=== PATIENT | male | born 1965 | race Caucasian/White ===

== ENCOUNTER → 2016-11-27 | Outpatient (REF) | payer MEDICARE, MEDICAID ==
[~2016-11-27] MED LIST: ALTA1.25 PO; AMLO2.5T PO; ASPI81TA4 PO; CARV25TA PO; CLAR10CA3 PO; FLEX10TA2 PO; LIPI20TA PO; OMEP40CA2 PO; OXYC5TAB2 PO; VALT1TAB PO
[2016-11-27 12:13] LABS: ALBUMIN 3.6 GM/DL (3.2-5.2); ALBUMIN/GLOBULIN RATIO 1.29 (1.00-1.93); ALKALINE PHOSPHATASE 43 U/L (45-117); ALT/SGPT 30 U/L (12-78); ANION GAP 8 MEQ/L (8-16); AST/SGOT 13 U/L (15-37); BILIRUBIN,TOTAL 0.3 MG/DL (0.2-1.0); BLOOD UREA NITROGEN 21 MG/DL (7-18); CALCIUM LEVEL 8.9 MG/DL (8.5-10.1); CARBON DIOXIDE LEVEL 29 MEQ/L (21-32); CHLORIDE LEVEL 103 MEQ/L (98-107); CHOLESTEROL LEVEL 200 MG/DL (<200); GLOMERULAR FILTRATION RATE > 60.0 (>56); GLUCOSE, FASTING 90 MG/DL (70-105); POTASSIUM SERUM 4.2 MEQ/L (3.5-5.1); SODIUM LEVEL 140 MEQ/L (136-145); TOTAL PROTEIN 6.4 GM/DL (6.4-8.2); TRIGLYCERIDES LEVEL 302 MG/DL (<150)
== END ==
LOC: M SFHCCLAY 08:17
PROVIDERS: ATTEND Family Medicine
DX: E78.2 Mixed hyperlipidemia (principal)

== ENCOUNTER → 2017-02-06 | Outpatient (REF) | payer MEDICARE, MEDICAID ==
[2017-02-06 17:23] LABS: BLOOD UREA NITROGEN 32 MG/DL (7-18); CREATININE FOR GFR 1.13 MG/DL (0.70-1.30); GLOMERULAR FILTRATION RATE > 60.0 (>56)
== END ==
LOC: M LABDRAWC 16:43
PROVIDERS: ATTEND Neurological Surgery
DX: I10 Essential (primary) hypertension (principal); G95.9 Disease of spinal cord, unspecified

== ENCOUNTER → 2017-06-03 | Outpatient (REF) | payer MEDICARE, MEDICAID ==
[2017-06-03 12:39] LABS: ALBUMIN 4.1 GM/DL (3.2-5.2); ALBUMIN/GLOBULIN RATIO 1.58 (1.00-1.93); ALKALINE PHOSPHATASE 44 U/L (45-117); ALT/SGPT 28 U/L (12-78); ANION GAP 9 MEQ/L (8-16); AST/SGOT 13 U/L (7-37); BILIRUBIN,TOTAL 0.4 MG/DL (0.2-1.0); BLOOD UREA NITROGEN 23 MG/DL (7-18); CARBON DIOXIDE LEVEL 25 MEQ/L (21-32); CHLORIDE LEVEL 104 MEQ/L (98-107); CHOLESTEROL LEVEL 200 MG/DL (<200); CREATININE FOR GFR 0.87 MG/DL (0.70-1.30); GLOMERULAR FILTRATION RATE > 60.0 (>56); GLUCOSE, FASTING 95 MG/DL (70-105); POTASSIUM SERUM 4.3 MEQ/L (3.5-5.1); SODIUM LEVEL 138 MEQ/L (136-145); TOTAL PROTEIN 6.7 GM/DL (6.4-8.2); TRIGLYCERIDES LEVEL 248 MG/DL (<150)
== END ==
LOC: M SFHCCLAY 09:33
PROVIDERS: ATTEND Family Medicine
DX: E78.2 Mixed hyperlipidemia (principal); Z12.5 Encounter for screening for malignant neoplasm of prostate
CPT/HCPCS: 80053; 80061; G0103

== ENCOUNTER → 2017-11-24 | Outpatient (REF) | payer MEDICARE, MEDICAID ==
[2017-11-24 18:09] LABS: ALBUMIN 4.4 GM/DL (3.2-5.2); ALBUMIN/GLOBULIN RATIO 1.33 (1.00-1.93); ALKALINE PHOSPHATASE 54 U/L (45-117); ALT/SGPT 28 U/L (12-78); ANION GAP 7 MEQ/L (8-16); AST/SGOT 15 U/L (7-37); BILIRUBIN,TOTAL 0.3 MG/DL (0.2-1.0); BLOOD UREA NITROGEN 26 MG/DL (7-18); CARBON DIOXIDE LEVEL 24 MEQ/L (21-32); CHLORIDE LEVEL 111 MEQ/L (98-107); CHOLESTEROL LEVEL 234 MG/DL (<200); CHOLESTEROL RISK RATIO 6.882 (<5); CREATININE FOR GFR 0.95 MG/DL (0.70-1.30); GLOMERULAR FILTRATION RATE > 60.0 (>56); GLUCOSE, FASTING 90 MG/DL (70-100); HDL CHOLESTEROL 34 MG/DL (>40); LDL CHOLESTEROL 126.4 MG/DL (<100); NON-HDL-C 200 MG/DL; SODIUM LEVEL 142 MEQ/L (136-145); TOTAL PROTEIN 7.7 GM/DL (6.4-8.2); TRIGLYCERIDES LEVEL 368 MG/DL (<150)
== END ==
LOC: M SFHCCLAY 10:17
DX: E78.2 Mixed hyperlipidemia (principal)
CPT/HCPCS: 80053

== ENCOUNTER → 2019-02-15 | Outpatient (CLI) | payer MEDICARE, MEDICAID ==
--- NOTE | 2019-02-16 04:49 | REP ---
Clinical: Back pain. Technique: AP, lateral, coned-down views of the lumbosacral spine. Findings: Alignment and lordosis maintained. No acute fracture / compression injury or subluxation. Mild multilevel degenerative changes include subtle marginal spurring and hypertrophic facet changes. Disc spaces appear maintained by radiographic evaluation. Atherosclerotic disease to the aorta noted and aortic ectasia versus aneurysm cannot be excluded. Impression: Minimal degenerative changes by radiographic evaluation. Cannot exclude abdominal aortic aneurysm for which ultrasound may be warranted. Electronically Signed by Margarito Mensah MD 02/16/2019 04:40 A
--- NOTE | 2019-02-16 05:18 | REP ---
Clinical: Neck pain. Technique: AP, lateral, flexion/extension, bilateral oblique, swimmers and open mouth views of the cervical spine. Comparison: 04/17/2016. Findings: The patient appears to be status post posterior fixation at C3 - C6 along with anterior fixation at C3-4 and C6-7. Advanced arthritic changes and alignment are maintained and stable compared with 2016. Impression: Relatively stable examination as compared to 2016. Electronically Signed by Margarito Mensah MD 02/16/2019 05:10 A
== END ==
LOC: M CLY 10:10
PROVIDERS: ATTEND Family Medicine
DX: M50.30 Other cervical disc degeneration, unspecified cervical region (principal); M51.37 Other intervertebral disc degeneration, lumbosacral region

== ENCOUNTER → 2019-02-22 | Outpatient (CLI) | payer MEDICARE, MEDICAID ==
--- NOTE | 2019-02-22 10:07 | REP ---
REASON: Possible abdominal aortic aneurysm. Multiple ultrasonographic images of the abdominal aorta were obtained from the level of the celiac axis to the aortoiliac bifurcation in the longitudinal and transverse scan planes. The maximal AP dimension of the abdominal aorta as measured in the longitudinal scan plane is 3.3 cm at the level of the renal arteries. There is no evidence of common iliac arterial ectasia. The aortic abebe are irregular consistent with atherosclerotic change. IMPRESSION: At the level of the renal arteries there is an aneurysm as described above. Electronically Signed by Eric Jeffries DO 02/22/2019 12:26 P
== END ==
LOC: M RAD 06:36
PROVIDERS: ATTEND Family Medicine
DX: I71.4 Abdominal aortic aneurysm, without rupture (principal)

== ENCOUNTER → 2019-04-21 | Outpatient (CLI) | payer MEDICARE, MEDICAID ==
--- NOTE | 2019-04-23 10:54 | SLEEPCENT ---
DATE OF PROCEDURE: 04/21/2019 ORDERED BY: JOSE Méndez Nocturnal polysomnography was performed for evaluation of sleep physiology in this patient with history of excessive somnolence and nonrestorative sleep who has comorbidities of hypertension, acid reflux disease, obstructive lung disease and who had previously identified to have obstructive sleep apnea syndrome. 6 hours and 44 minutes of data were reviewed. There were 364 minutes of sleep identified. Sleep latency was normal at 10 minutes. Rapid eye movement (REM) latency was normal at 97 minutes. Sleep architecture was fair with two REM cycles. Overall sleep efficiency 92.3%. The electrocardiogram showed a sinus rhythm with an average heart rate of 58 beats per minute. Electroencephalogram (EEG) showed normal waveforms for awake and sleep. There were 150 respiratory events identified of 10 seconds in duration or greater for an apnea-hypopnea index of 24.7. The events were primarily obstructive, however, 37 central and mixed apneas were also seen. The events were not exclusive to sleep stage nor body posture. Arousals from respiratory events occurred 23.1 times per hour and oxygen desaturations were seen on occasion into the 80s. Remaining measures of sleep physiology were normal. IMPRESSION: Obstructive sleep apnea syndrome (G47.33). Apnea-hypopnea index 24.7. RECOMMENDATIONS: The patient should be encouraged to return to sleep disorder center for pressure therapy. In the interim, alcohol and sedative avoidance should be practiced and caution exercised during operation of motor vehicles.
== END ==
LOC: M SLEEP 19:29
PROVIDERS: ATTEND Physician Assistant
DX: G47.33 Obstructive sleep apnea (adult) (pediatric) (principal); R06.83 Snoring

== ENCOUNTER → 2019-05-21 | Outpatient (CLI) | payer MEDICARE, MEDICAID ==
--- NOTE | 2019-05-25 14:20 | SLEEPCENT ---
DATE OF STUDY: 05/21/2019 ORDERED BY: Margarito Moody Nocturnal polysomnography was performed for the titration of pressure therapy in this patient with obstructive sleep apnea syndrome and apnea-hypopnea index of 24.7. For testing, the patient was fit with a ResMed AirFit F30 full face mask of medium size and 4 cm of water pressure were applied to the circuit and the lights were extinguished. 7 hours and 43 minutes of data were reviewed. There were 319 minutes of sleep identified. Sleep latency was mildly prolonged at 16 minutes. Rapid eye movement (REM) latency was more so prolonged at 231 minutes. Sleep architecture improved with optimal pressure therapy. There were 2 REM cycles noted. Overall sleep efficiency was 70%. The patient's electrocardiogram showed a sinus rhythm with an average heart rate of 56 beats per minute. There were frequent ectopic beats noted. Electroencephalogram (EEG) showed no clear focal events. Significant N3 sleep was noted. Respiratory events were fully palliated with C-PAP at a pressure of +12 and remaining measures of sleep physiology were normal. IMPRESSION: Obstructive sleep apnea syndrome (G47.33). RECOMMENDATION: Nightly use of pressure therapy at 12 cm of water.
== END ==
LOC: M SLEEP 19:19
PROVIDERS: ATTEND Physician Assistant
DX: G47.33 Obstructive sleep apnea (adult) (pediatric) (principal)

== ENCOUNTER → 2019-09-14 | Outpatient (REF) | payer MEDICARE, MEDICAID ==
[2019-09-14 14:30] LABS: APPEARANCE, URINE CLEAR (CLEAR); BACTERIA, URINE AUTO NEGATIVE (NEGATIVE); BILIRUBIN, URINE AUTO NEGATIVE (NEGATIVE); BLOOD, URINE BLOOD NEGATIVE (NEGATIVE); COLOR, URINE YELLOW (YELLOW); GLUCOSE, URINE (UA) AUTO NEGATIVE (NEGATIVE); KETONE, URINE AUTO NEGATIVE (NEGATIVE); LEUKOCYTE ESTERASE, URINE AUTO NEGATIVE (NEGATIVE); MUCUS, URINE SMALL (NEGATIVE); NITRITE, URINE AUTO NEGATIVE (NEGATIVE); PROTEIN, URINE AUTO NEGATIVE (NEGATIVE); RBC, URINE AUTO 0 /HPF (0-3); SPECIFIC GRAVITY URINE AUTO 1.008 (1.002-1.035); SQUAMOUS EPITHELIAL CELL UR AU 0 /HPF (0-6); UROBILINOGEN, URINE AUTO 0.2 mg/dL (0.0-2.0); WBC, URINE AUTO 0 /HPF (0-3)
[2019-09-14 14:49] LABS: ALBUMIN 4.2 GM/DL (3.2-5.2); ALT/SGPT 31 U/L (12-78); BILIRUBIN,TOTAL 0.3 MG/DL (0.2-1.0); BLOOD UREA NITROGEN 24 MG/DL (7-18); CALCIUM LEVEL 9.1 MG/DL (8.5-10.1); CARBON DIOXIDE LEVEL 26 MEQ/L (21-32); CHLORIDE LEVEL 110 MEQ/L (98-107); CHOLESTEROL LEVEL 252 MG/DL (<200); CREATININE FOR GFR 0.97 MG/DL (0.70-1.30); GLOMERULAR FILTRATION RATE > 60.0 (>56); GLUCOSE, FASTING 107 MG/DL (70-100); HDL CHOLESTEROL 35 MG/DL (>40); NON-HDL-C 217 MG/DL; SODIUM LEVEL 142 MEQ/L (136-145); TOTAL PROTEIN 6.9 GM/DL (6.4-8.2); TRIGLYCERIDES LEVEL 414 MG/DL (<150)
[2019-09-14 18:14] LABS: HEMOGLOBIN A1c 5.4 %
[2019-09-15 10:35] LABS: HEPATITIS C VIRUS ABY INDEX < 0.0 INDEX (<0.8)
== END ==
LOC: M LABDRAW1 13:06
PROVIDERS: ATTEND Internal Medicine Infectious Disease
DX: B20 Human immunodeficiency virus [HIV] disease (principal); E78.2 Mixed hyperlipidemia; Z79.899 Other long term (current) drug therapy

== ENCOUNTER → 2019-11-12 | Outpatient (CLI) | payer MEDICARE, MEDICAID ==
[~2019-11-12] MED LIST changes: +ISOVUE-370 76% 100ML VIAL As Ordered ONE
--- NOTE | 2019-11-12 13:24 | REP ---
CAROTID ULTRASOUND: Real-time ultrasound evaluation and duplex Doppler interrogation of the extracranial carotid vasculature is performed. There is mild plaquing and narrowing in both carotid bulbs extending into the internal and external carotid arteries. Luminal narrowing is less than 50%. There is no evidence of hemodynamically significant stenosis of either internal carotid artery. Normal flow velocities are seen. The right vertebral artery demonstrates normal direction of flow. The left vertebral artery is not visualized. RIGHT LEFT Peak systolic velocity ICA 72.8 cm/s 110.4 cm/s End diastolic velocity ICA 19.4 cm/s 38.3 cm/s Peak systolic velocity CCA 103.8 cm/s 89.8 cm/s Peak systolic velocity ECA 87.4 cm/s 89.9 cm/s ICA/CCA ratio 0.7 1.2 IMPRESSION: Bilateral luminal narrowing of the internal carotid arteries less than 50%. No evidence of hemodynamically significant stenosis. Electronically Signed by Teodoro Browne MD 11/12/2019 01:16 P
--- NOTE | 2019-11-12 14:33 | REP ---
CT CHEST WITH IV CONTRAST: HISTORY: Abdominal aortic aneurysm. Occlusion and stenosis. CT CONTRAST DOSE: 75 mL of intravenous Isovue 370. No comparison chest CT study. CT FINDINGS: Pulmonary digital outreach specialist radiograph is unremarkable. A left arm vein was injected with contrast. There are more than the usual number of shoulder, upper arm, anterior chest wall and in the mediastinum. Brachial cephalic vein in the proximal subclavian vein on the left are occluded with well established collaterals consistent with a chronic venous occlusion. The right internal jugular vein is larger than the left and patent. The right superior vena cava and the main superior vena cava are widely patent. The thoracic aorta enhances homogeneously. There is no evidence of aneurysm or dissection. There is some vascular calcification including left coronary artery distribution vascular calcification. There is good opacification of the pulmonary arterial tree. No filling defect is seen to suggest pulmonary embolism. No hilar or mediastinal mass or adenopathy is observed. Great vessel origins are unremarkable. No adrenal lesion is seen. There is mild linear fibrosis in the left lower lobe. There is granulomatous calcification in the left upper lobe. There is a small granulomatous calcification in the left lower lobe. There is a larger centrally calcified benign-appearing granuloma in the right upper lobe measuring 1.5 cm in greatest diameter. This is a smaller adjacent nodule which is also calcified. Bony window settings show no bony destructive lesion. The patient is status post cervical spine in fusion hardware placement. In the left upper lobe there are three small subcentimeter ill-defined nodular densities in a peribronchovascular distribution near the apex. These are nearly adjacent to one another and this could reflect inflammatory change. IMPRESSION: 1. 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 2. Scattered granulomatous calcifications. 3. Noncalcified ill-defined peribronchovascular nodules in the left upper lobe 3-4 mm in greatest diameter. Followup is recommended. Repeat CT study 6 months time. Incomplete
--- NOTE | 2019-11-12 15:16 | REP ---
CT ABDOMEN AND PELVIS WITHOUT CONTRAST: CT abdomen and pelvis performed without oral or IV contrast. Sagittal and coronal reconstruction images are performed. Fibrotic scarring is seen in the left lung base as well as a calcified granuloma. The liver demonstrates a couple of tiny subcentimeter hypodensities probably representing cysts. Spleen is normal size. Left adrenal adenoma is present approximately 2 cm in maximum diameter. Right adrenal glands is normal. Pancreas is grossly unremarkable. Kidneys are grossly unremarkable with no hydronephrosis. There is moderate atherosclerotic calcification of the abdominal aorta. There is fusiform dilatation of the mid to distal abdominal aorta extending from the level of the renal arteries to just above the bifurcation. This extends for a length of about 8 cm. At the level of the renal arteries, maximum AP diameter is 3.6 cm. Distally, the abdominal aorta tapers, at the distal end of this fusiform dilatation with maximum AP diameter is 3.2 cm. Diameter at the aortic bifurcation is within normal range. No adenopathy is seen. There is no free air or free fluid. There is no bowel wall thickening. No pelvic mass is seen. Urinary bladder is grossly unremarkable. There are degenerative changes of the spine. There are small bilateral inguinal hernias containing fat. IMPRESSION: Fusiform mild aneurysmal dilatation of the mid to distal abdominal aorta extending from the level of the renal arteries to just above the bifurcation, length is approximately 8 cm. Maximum AP dimension is at the proximal aspect at the level of the renal artery is 3.6 cm. There are small bilateral inguinal hernias containing fat. Electronically Signed by Teodoro Browne MD 11/12/2019 03:44 P
== END ==
LOC: M RAD 12:39
PROVIDERS: ATTEND Physician Assistant
DX: I71.4 Abdominal aortic aneurysm, without rupture (principal); I65.23 Occlusion and stenosis of bilateral carotid arteries
CPT/HCPCS: 71260; 74176; 93880; Q9967

== ENCOUNTER → 2019-12-31 | Outpatient (CLI) | payer MEDICARE, MEDICAID ==
[~2019-12-31] MED LIST changes: -ISOVUE-370 76% 100ML VIAL As Ordered ONE
--- NOTE | 2019-12-31 10:18 | REP ---
CERVICAL SPINE SERIES: Three views. HISTORY: Radiculopathy. Comparison study February 15, 2019. FINDINGS: There is reversal of the normal cervical lordosis. The patient is status post ventral discectomy and fusion plating is C3-4 and also at C6-7. There is dorsal fusion hardware across the C3 through C6 levels as before. Alignment is unchanged. Discogenic spurring is seen anteriorly at C5-6. This is unchanged. There is a dextroconvex curvature on the AP view again noted. No bony destructive lesion is seen. The patient is edentulous. IMPRESSION: Degenerative and extensive postsurgical changes radiographically stable from February 15, 2019. Electronically Signed by Amos Bar MD 12/31/2019 12:47 P
== END ==
LOC: M CLY 08:36
PROVIDERS: ATTEND Neurological Surgery
DX: M54.2 Cervicalgia (principal); Z98.1 Arthrodesis status; M46.02 Spinal enthesopathy, cervical region

== ENCOUNTER → 2020-02-29 | Outpatient (REF) | payer MEDICARE, MEDICAID ==
[2020-04-26 14:02] LABS: BLOOD UREA NITROGEN 25 MG/DL (7-18); CREATININE FOR GFR 1.01 MG/DL (0.70-1.30); GLOMERULAR FILTRATION RATE > 60.0 (>56)
== END ==
LOC: M LABDRAWC 12:01
PROVIDERS: ATTEND Physician Assistant
DX: R94.2 Abnormal results of pulmonary function studies (principal)

== ENCOUNTER → 2020-05-24 | Outpatient (REF) | payer MEDICARE, MEDICAID ==
[2020-05-24 16:29] LABS: BLOOD UREA NITROGEN 18 MG/DL (7-18); CREATININE FOR GFR 0.95 MG/DL (0.70-1.30); GLOMERULAR FILTRATION RATE > 60.0 (>56)
== END ==
LOC: M LABDRAWC 15:50
PROVIDERS: ATTEND Physician Assistant
DX: R91.8 Other nonspecific abnormal finding of lung field (principal); R94.2 Abnormal results of pulmonary function studies

== ENCOUNTER → 2020-05-26 | Outpatient (CLI) | payer MEDICARE, MEDICAID ==
[~2020-05-26] MED LIST changes: +ISOVUE-370 76% 100ML VIAL As Ordered ONE
--- NOTE | 2020-05-26 13:57 | REP ---
INDICATION: ABNORMAL RESULTS OF PFT, WITH PE PROTOCOL. COMPARISON: CT 11/12/2019 TECHNIQUE: CT angiogram chest performed following the intravenous administration of 75 cc of Isovue 370. Sagittal and coronal reconstruction images are performed. A right upper extremity injection was performed as the previous CT showed occlusion of the left brachiocephalic vein and numerous collaterals which would limit a CT angiogram. FINDINGS: Lungs: Some stable apical pleuroparenchymal fibrosis bilaterally. Few small left upper lobe nodules are seen which appear stable and have a zone of the ring-like fibrotic change around them appearance grossly unchanged. Some stranding towards the hilum. Hyperinflation is again seen. No granulomatous calcification anterolaterally in the right upper lobe along the anterior axillary line with adjacent daughter nodule and stable, benign. There is a 4 mm nodule superior segment right lower lobe abutting the pleura and stable. No pleural thickening, pleural effusion or acute infiltrate. Pulmonary arteries: No evidence of pulmonary embolism. Mi: 8 mm nodes at the right hilum. No cm size nodes or mass. Axilla: No adenopathy. Pleura: No effusion, pleural plaque or calcified plaque. No pleural based mass. Heart: Not enlarged. Thoracic aorta: No aneurysm or dissection in the thoracic aorta. However, there is aneurysmal dilatation up to 3.8 cm in the infrarenal abdominal aorta on the last image of this field of view. This is a known finding based on CT 11/12/2019. There are atherosclerotic calcifications. Upper abdominal structures: Unremarkable. Visualized osseous structures: Unremarkable. IMPRESSION: No CT evidence of pulmonary embolism. Some mild chronic fibrotic changes and a few stable nodules some calcified granulomas. Left apex scarring. No infiltrate or effusion and no mediastinal, hilar or axillary adenopathy. Upper abdominal aortic aneurysm noted as on previous CT abdomen and November 2019 but this is only seen in part today. <Electronically signed by Karthikeyan Vazquez > 05/26/20 [id number]
== END ==
LOC: M RAD 11:07
PROVIDERS: ATTEND Physician Assistant
DX: R94.2 Abnormal results of pulmonary function studies (principal); J84.10 Pulmonary fibrosis, unspecified; R91.8 Other nonspecific abnormal finding of lung field; I71.4 Abdominal aortic aneurysm, without rupture
CPT/HCPCS: 71275; Q9967

== ENCOUNTER → 2021-01-03 | Outpatient (CLI) | payer MEDICARE, MEDICAID ==
[~2021-01-03] MED LIST changes: -ISOVUE-370 76% 100ML VIAL As Ordered ONE
--- NOTE | 2021-01-03 08:34 | REP ---
INDICATION: AAA WITHOUT RUPTURE. COMPARISON: 02/22/2019. TECHNIQUE: Real-time sonographic evaluation of the abdominal aorta performed. FINDINGS: There is mild diffuse dilatation of the abdominal aorta from the level of the renal arteries to the aortic bifurcation. Maximum AP diameter of abdominal aorta: Proximal (at diaphragm):3.0 cm. At renal artery level: 3.8 cm Mid abdominal aorta:3.4 cm. Distal abdominal aorta (prebifurcation): 3.7 cm. Maximum AP diameter common iliac arteries: Right: 9 mm. Left: 9mm. IMPRESSION: Mild diffuse dilatation of the abdominal aorta from the level of the renal arteries to the aortic bifurcation extending for a length of approximately 10 cm. Maximum AP diameter is at the level of the renal arteries, 3.8 cm. Previously the maximum diameter in the AP dimension was 3.3 cm. <Electronically signed by Teodoro Browne > 01/03/21 [id number]
== END ==
LOC: M RAD 07:29
PROVIDERS: ATTEND Family Medicine
DX: I71.4 Abdominal aortic aneurysm, without rupture (principal)

== ENCOUNTER → 2021-01-30 | Outpatient (CLI) | payer MEDICARE, MEDICAID ==
--- NOTE | 2021-01-31 08:51 | DEXAMM ---
INDICATION: M50.30 DEGENERATIVE DISC DX. COMPARISON: None. TECHNIQUE: Bone density was measured using dual-energy x-ray absorptiometry (DEXA). FINDINGS: AP SPINE L1-L4 BMD 1.130 g/cm2 Young Adult T-Score -0.5 Age Matched Z-Score -0.6. LT FEMUR, TOTAL BMD 0.766 g/cm2 Young Adult T-Score -1.9 Age Matched Z-Score -1.9. LT NECK BMD 0.744 g/cm2 Young Adult T-Score -2.1 Age Matched Z-Score -1.7. RT FEMUR, TOTAL BMD 0.785 g/cm2 Young Adult T-Score -1.8 Age Matched Z-Score -1.8. RT NECK BMD 0.735 g/cm2 Young Adult T-Score -2.2 Age Matched Z-Score -1.8. IMPRESSION: There is normal bone density of the spine. There is low bone density of the left hip. There is low bone density of the right hip. FOLLOW-UP: Recommendation for the next bone density exam: 2 years. <Electronically signed by Teodoro Browne > 01/31/21 [id number]
== END ==
LOC: M WHC 10:09
DX: M85.88 Other specified disorders of bone density and structure, other site (principal); M50.30 Other cervical disc degeneration, unspecified cervical region

== ENCOUNTER → 2021-01-30 | Outpatient (CLI) | payer MEDICARE, MEDICAID ==
--- NOTE | 2021-01-30 11:47 | REP ---
INDICATION: DDD. COMPARISON: Comparison study December 31, 2019.. TECHNIQUE: Eight views. FINDINGS: Lateral views of the cervical spine done in flexion, extension, and neutral position show relative flexion extension immobility but no instability or subluxation is seen. There is reversal of the normal cervical lordosis as previously noted. Ventral discectomy and fusion plates are seen across the C3-4 and C6-7 disc spaces. Bilateral dorsal screw isak fixation devices are also noted from C3 through C6. Patient is edentulous. There is prominent discogenic spurring anteriorly at C5-6. These findings are unchanged. Swimmer's lateral view shows no additional abnormality. There is a mild dextroconvex curve again noted on the AP radiograph. Oblique images show no bony neural foraminal encroachment. Open mouth odontoid view is unremarkable. IMPRESSION: Stable degenerative disc and status post fusion changes. Discogenic spurring anteriorly at C5-6. Reversal of the normal cervical lordosis. Limited flexion extension range of motion. <Electronically signed by Carlos Bar > 01/30/21 [id number]
== END ==
LOC: M PLAIMG 09:28
DX: M50.30 Other cervical disc degeneration, unspecified cervical region (principal)

== ENCOUNTER → 2021-09-04 | Outpatient (CLI) | payer MEDICARE, MEDICAID | LOC: M RAD 10:26 | PROVIDERS: ATTEND Family Medicine | DX: R22.1 Localized swelling, mass and lump, neck (principal) ==

== ENCOUNTER → 2021-09-27 | Outpatient (CLI) | payer MEDICARE, MEDICAID | LOC: M CLY 09:05 | PROVIDERS: ATTEND Physician Assistant | DX: M54.2 Cervicalgia (principal) ==

== ENCOUNTER → 2021-10-09 | Outpatient (CLI) | payer MEDICARE, MEDICAID | LOC: M PAIN 09:00 | PROVIDERS: ATTEND Nurse Practitioner Family | DX: M79.10 Myalgia, unspecified site (principal); J44.9 Chronic obstructive pulmonary disease, unspecified; G47.30 Sleep apnea, unspecified; F17.210 Nicotine dependence, cigarettes, uncomplicated; Z86.59 Personal history of other mental and behavioral disorders; Z88.2 Allergy status to sulfonamides; Z88.8 Allergy status to other drugs, medicaments and biological substances; Z91.018 Allergy to other foods; Z79.82 Long term (current) use of aspirin; Z79.899 Other long term (current) drug therapy ==

== ENCOUNTER → 2021-12-14 | Outpatient (CLI) | payer MEDICARE, MEDICAID | LOC: M PLARAD 10:20 | PROVIDERS: ATTEND Family Medicine | DX: M50.21 Other cervical disc displacement, high cervical region (principal); R20.0 Anesthesia of skin; R15.9 Full incontinence of feces; M50.23 Other cervical disc displacement, cervicothoracic region; M48.02 Spinal stenosis, cervical region ==

== ENCOUNTER → 2022-01-11 | Outpatient (CLI) | payer MEDICARE, MEDICAID | LOC: M RAD 12:46 | PROVIDERS: ATTEND Family Medicine | DX: R91.8 Other nonspecific abnormal finding of lung field (principal); I70.0 Atherosclerosis of aorta; I25.10 Atherosclerotic heart disease of native coronary artery without angina pectoris ==

== ENCOUNTER → 2022-01-15 | Outpatient (CLI) | payer MEDICARE, MEDICAID | LOC: M RAD 06:34 | PROVIDERS: ATTEND Family Medicine | DX: I67.1 Cerebral aneurysm, nonruptured (principal) ==

== ENCOUNTER → 2022-01-24 | Outpatient (REF) | payer MEDICARE, MEDICAID ==
[2022-01-24 12:20] LABS: BLOOD UREA NITROGEN 21 MG/DL (7-18); CALCIUM LEVEL 9.5 MG/DL (8.5-10.1); CARBON DIOXIDE LEVEL 28 MEQ/L (21-32); CHLORIDE LEVEL 104 MEQ/L (98-107); CHOLESTEROL LEVEL 259 MG/DL (<200); CHOLESTEROL RISK RATIO 7.617 (<5); CREATININE FOR GFR 0.88 MG/DL (0.70-1.30); GLOMERULAR FILTRATION RATE > 60.0 (>56); GLUCOSE, FASTING 99 MG/DL (70-100); HDL CHOLESTEROL 34 MG/DL (>40); LDL CHOLESTEROL 156 MG/DL (<100); NON-HDL-C 225 MG/DL; POTASSIUM SERUM 4.5 MEQ/L (3.5-5.1); SODIUM LEVEL 138 MEQ/L (136-145); TRIGLYCERIDES LEVEL 345 MG/DL (<150)
[2022-01-24 12:32] LABS: HEMOGLOBIN A1c 5.9 %
== END ==
LOC: M SFHCCLAY 08:27
PROVIDERS: ATTEND Family Medicine
DX: E78.2 Mixed hyperlipidemia (principal); I11.9 Hypertensive heart disease without heart failure; Z13.1 Encounter for screening for diabetes mellitus

== ENCOUNTER 2022-02-04 12:24 | Emergency (ER) | payer MEDICARE, MEDICAID ==
[~2022-02-04] VITALS: Ht 172.7 cm; Wt 74.1 kg
[2022-02-04 14:08] LABS: BASO # 0.1 10^3/uL (0.0-0.2); BASO % 0.7 % (0.0-1.0); EOS # 0.1 10^3/uL (0.0-0.5); HEMATOCRIT 50.6 % (42.0-52.0); HEMOGLOBIN 17.3 g/dl (13.5-17.5); LYMPH # 3.7 10^3/uL (1.5-5.0); LYMPH % 31.1 % (24.0-44.0); MEAN CORPUSCULAR HEMOGLOBIN 34.1 pg (27.0-33.0); MEAN CORPUSCULAR HGB CONC 34.2 g/dl (32.0-36.5); MEAN CORPUSCULAR VOLUME 99.6 fl (80.0-96.0); MONO # 0.8 10^3/uL (0.0-0.8); MONO % 6.5 % (2.0-8.0); NEUTROPHILS # 7.3 10^3/uL (1.5-8.5); NEUTROPHILS % 60.4 % (36.0-66.0); PLATELET COUNT, AUTOMATED 266 10^3/uL (150-450); RED BLOOD COUNT 5.08 10^6/uL (4.30-6.10)
[2022-02-04] MEDS ORDERED: NS 1,000 ML IV ONE (14:55)
[2022-02-04] MEDS ORDERED: ISOVUE-370 76% 100ML VIAL As Ordered ONE (15:24)
[2022-02-04] MEDS ORDERED: MORPHINE 4 MG/ML 1ML VIAL/SYRINGE IV ONE (17:15)
[2022-02-04 18:01] LABS: ALBUMIN 4.4 GM/DL (3.2-5.2); ALT/SGPT 34 IU/L (0-32); BILIRUBIN,DIRECT < 0.1 MG/DL (0.0-0.2); BILIRUBIN,TOTAL 0.5 MG/DL (0.2-1.0); BLOOD UREA NITROGEN 36 MG/DL (7-18); CALCIUM LEVEL 9.8 MG/DL (8.5-10.1); CARBON DIOXIDE LEVEL 23 mmol/L (20-29); CHLORIDE LEVEL 110 MEQ/L (98-107); CREATININE FOR GFR 1.06 MG/DL (0.70-1.30); GLOMERULAR FILTRATION RATE > 60.0 (>56); GLUCOSE, FASTING 94 MG/DL (70-100); POTASSIUM SERUM 4.5 MEQ/L (3.5-5.1); SODIUM LEVEL 140 MEQ/L (136-145); TOTAL PROTEIN 8.1 GM/DL (6.4-8.2)
[2022-02-04 18:02] LABS: LIPASE 141 U/L (73-393)
[2022-02-04 19:05] LABS: INR 0.97; PARTIAL THROMBOPLASTIN TIME 26.2 SECONDS (25.9-37.0); PROTHROMBIN TIME 13.2 SECONDS (12.7-14.5)
[2022-02-04 19:52] VITALS: BP 144/83
== END 2022-02-04 19:55 | disposition home or self-care (01) ==
LOC: M ED 12:24
DX: R10.84 Generalized abdominal pain (principal); K76.89 Other specified diseases of liver; I70.0 Atherosclerosis of aorta; I70.1 Atherosclerosis of renal artery; D35.02 Benign neoplasm of left adrenal gland; I25.2 Old myocardial infarction; I10 Essential (primary) hypertension; Z86.79 Personal history of other diseases of the circulatory system; F17.200 Nicotine dependence, unspecified, uncomplicated; Z79.82 Long term (current) use of aspirin; Z79.899 Other long term (current) drug therapy; Z91.018 Allergy to other foods; Z88.2 Allergy status to sulfonamides; J30.1 Allergic rhinitis due to pollen; J30.89 Other allergic rhinitis
CPT/HCPCS: 74175; 76705; 80047; 80048; 80076; 83690; 85025; 85610; 85730; 86850; 86900; 86901; 93041; 96361; 96374; 99284; J2270; Q9967

== ENCOUNTER → 2022-07-18 | Outpatient (CLI) | payer MEDICARE, MEDICAID | LOC: M RAD 11:12 | PROVIDERS: ATTEND Neurological Surgery | DX: M50.30 Other cervical disc degeneration, unspecified cervical region (principal); R42 Dizziness and giddiness; R51.9 Headache, unspecified; Z98.890 Other specified postprocedural states ==

== ENCOUNTER → 2022-10-03 | Outpatient (REF) | payer MEDICARE, MEDICAID ==
[2022-10-03 17:19] LABS: HEMOGLOBIN 14.5 g/dl (13.5-17.5); MEAN CORPUSCULAR HEMOGLOBIN 33.5 pg (27.0-33.0); MEAN CORPUSCULAR VOLUME 101.6 fl (80.0-96.0); PLATELET COUNT, AUTOMATED 245 10^3/uL (150-450); RED BLOOD COUNT 4.33 10^6/uL (4.30-6.10); WHITE BLOOD COUNT 11.3 10^3/uL (4.0-10.0)
[2022-10-03 17:38] LABS: HEMOGLOBIN A1c 5.7 % (4.0-6.0)
[2022-10-03 17:51] LABS: ALKALINE PHOSPHATASE 41 U/L (46-116); ALT/SGPT 26 U/L (7.0-40); AST/SGOT 18 U/L (<34); BILIRUBIN,TOTAL 0.3 MG/DL (0.3-1.2); BLOOD UREA NITROGEN 26 MG/DL (9-23); CALCIUM LEVEL 9.3 MG/DL (8.5-10.1); CARBON DIOXIDE LEVEL 27 MMOL/L (20-31); CHLORIDE LEVEL 106 MMOL/L (98-107); CHOLESTEROL LEVEL 276 MG/DL (<200); CREATININE FOR GFR 0.83 MG/DL (0.70-1.30); GLOMERULAR FILTRATION RATE > 60.0 (>56); GLUCOSE, FASTING 95 MG/DL (60-100); HDL CHOLESTEROL 43.1 MG/DL (>40); LDL CHOLESTEROL 170.1 MG/DL (<100); NON-HDL-C 232.9 MG/DL; POTASSIUM SERUM 4.6 MMOL/L (3.5-5.1); SODIUM LEVEL 141 MMOL/L (136-145); TOTAL PROTEIN 6.8 G/DL (5.7-8.2); TRIGLYCERIDES LEVEL 314 MG/DL (<150)
== END ==
LOC: M SFHCCLAY 11:23
PROVIDERS: ATTEND Nurse Practitioner Family
DX: E78.2 Mixed hyperlipidemia (principal); I10 Essential (primary) hypertension; I25.10 Atherosclerotic heart disease of native coronary artery without angina pectoris; Z79.899 Other long term (current) drug therapy

== ENCOUNTER → 2022-11-08 | Outpatient (CLI) | payer OTHER, MEDICAID | LOC: M RAD 08:13 | PROVIDERS: ATTEND Physician Assistant | DX: I71.43 Infrarenal abdominal aortic aneurysm, without rupture (principal); I65.23 Occlusion and stenosis of bilateral carotid arteries ==

== ENCOUNTER → 2023-03-26 | Outpatient (REF) | payer OTHER, MEDICAID ==
[2023-03-26 13:03] LABS: BASO # 0.1 10^3/uL (0.0-0.2); EOS # 0.2 10^3/uL (0.0-0.5); EOS % 1.9 % (0.0-3.0); HEMATOCRIT 42.9 % (42.0-52.0); HEMOGLOBIN 14.5 g/dl (13.5-17.5); LYMPH # 3.3 10^3/uL (1.5-5.0); LYMPH % 33.3 % (24.0-44.0); MEAN CORPUSCULAR HEMOGLOBIN 35.4 pg (27.0-33.0); MEAN CORPUSCULAR HGB CONC 33.8 g/dl (32.0-36.5); MEAN CORPUSCULAR VOLUME 104.6 fl (80.0-96.0); MONO # 0.8 10^3/uL (0.0-0.8); MONO % 8.1 % (2.0-8.0); NEUTROPHILS # 5.5 10^3/uL (1.5-8.5); NEUTROPHILS % 55.4 % (36.0-66.0); PLATELET COUNT, AUTOMATED 231 10^3/uL (150-450)
[2023-03-26 13:26] LABS: BLOOD UREA NITROGEN 28 MG/DL (9-23); CALCIUM LEVEL 9.2 MG/DL (8.5-10.1); CARBON DIOXIDE LEVEL 30 MMOL/L (20-31); CHLORIDE LEVEL 106 MMOL/L (98-107); GLOMERULAR FILTRATION RATE > 60.0 (>56); GLUCOSE, FASTING 113 MG/DL (60-100); POTASSIUM SERUM 4.9 MMOL/L (3.5-5.1); SODIUM LEVEL 141 MMOL/L (136-145)
== END ==
LOC: M LABDRAWC 11:40
PROVIDERS: ATTEND Nurse Practitioner Family
DX: I72.9 Aneurysm of unspecified site (principal)

== ENCOUNTER → 2023-05-27 | Outpatient (CLI) | payer OTHER, MEDICAID | LOC: M PLAIMG 09:48 | PROVIDERS: ATTEND Nurse Practitioner Family | DX: R91.1 Solitary pulmonary nodule (principal); D35.02 Benign neoplasm of left adrenal gland; I71.41 Pararenal abdominal aortic aneurysm, without rupture ==

== ENCOUNTER → 2023-11-11 | Outpatient (CLI) | payer OTHER, MEDICAID | LOC: M PLAIMG 14:39 | PROVIDERS: ATTEND Nurse Practitioner Family | DX: I67.1 Cerebral aneurysm, nonruptured (principal) ==

== ENCOUNTER → 2025-01-12 | Outpatient (REF) | payer OTHER, MEDICAID ==
[2025-01-12 18:21] LABS: PROSTATIC SPECIFIC AG MONITOR 0.47 NG/ML (< 4.00)
[2025-01-12 18:23] LABS: ALT/SGPT 20 U/L (7.0-40); AST/SGOT 22 U/L (<34); CALCIUM LEVEL 9.2 MG/DL (8.5-10.1); CARBON DIOXIDE LEVEL 24 MMOL/L (20-31); CHLORIDE LEVEL 105 MMOL/L (98-107); CHOLESTEROL LEVEL 231 MG/DL (<200); CHOLESTEROL RISK RATIO 7.54 (<5); CREATININE FOR GFR 0.93 MG/DL (0.70-1.30); GLOMERULAR FILTRATION RATE > 90.0 (>56); LDL CHOLESTEROL 127.0 MG/DL (<100); NON-HDL-C 200.4 MG/DL; POTASSIUM SERUM 4.3 MMOL/L (3.5-5.1); SODIUM LEVEL 140 MMOL/L (136-145); TRIGLYCERIDES LEVEL 367 MG/DL (<150)
[2025-01-12 18:32] LABS: ESTIMATED AVERAGE GLUCOSE 120.0 MG/DL (60-110)
== END ==
LOC: M SFHCCLAY 10:21
PROVIDERS: ATTEND Nurse Practitioner Family
DX: Z12.5 Encounter for screening for malignant neoplasm of prostate (principal); I10 Essential (primary) hypertension; I25.10 Atherosclerotic heart disease of native coronary artery without angina pectoris; B20 Human immunodeficiency virus [HIV] disease; R91.1 Solitary pulmonary nodule; I67.1 Cerebral aneurysm, nonruptured; E78.2 Mixed hyperlipidemia; I71.40 Abdominal aortic aneurysm, without rupture, unspecified; J44.9 Chronic obstructive pulmonary disease, unspecified; Z79.899 Other long term (current) drug therapy